=== PATIENT | male | born 1960 | race Caucasian/White ===

== ENCOUNTER → 2020-11-19 | Outpatient (CLI) | payer MEDICARE ==
[2014-10-14 17:56] VITALS: BP 135/87
[~2020-11-19] MED LIST: IOHEXOL 240 MG/ML 50ML VIAL. ONE; IOHEXOL 240 MG/ML 50ML VIAL. PO ONE; IOHEXOL 300 MG/ML 75 ML VIAL. IV ONE; OXYC5TAB88 PO; PROM12.554 RC
--- NOTE | 2020-11-19 15:13 | RAD ---
Axial CT of the abdomen and pelvis were obtained after the administration of intravenous contrast . O ral contrast was also administered. Coronal and sagittal reformats are also available. Indication: Abdominal pain and bloating. History of skin cancer.. Comparison: None. Findings: Lung bases are clear. The heart is unenlarged. Multiple, too numerous to count lesions are identified in the bilateral lobes of the liver. Findings are highly suspicious for metastatic disease or less likely multifocal HCC. Spleen, adrenals kidneys and pancreas are unremarkable in appearance. There is trace pericholecystic fluid as well as trace pe rihepatic fluid. The stomach, small and large bowel are nondistended. There is significant sigmoid diverticulosis with out diverticulitis. Additionally there is a long segment thickening of the a sending colon as well. T he appendix is visualized and is unremarkable in appearance. No free air. The abdominal aorta is nonaneurysmal. There is dense calcific atherosclerotic disease. The superior m esenteric and splenic veins are normal in appearance. Bony structures are unremarkable. IMPRESSION: 1. Multiple hypodensities throughout the liver in a bilobar distribution most suggestive of metastati c disease. Would also consider multifocal HCC this is less likely. There is trace pericholecystic flu id as well as trace perihepatic fluid. 2. Sigmoid diverticulosis no diverticulitis. There is also thickening of the a sending colon. Unknown if this is inflammatory change or possible neoplasm. Exposure: One or more of the following individualized dose reduction techniques were utilized for thi s examination: 1. Automated exposure control 2. Adjustment of the mA and/or kV according to patient size 3. Use of iterative reconstruction technique Electronically signed by: Francisco J Gilmore MD (11/19/2020 3:10 PM) [facility]
== END ==
LOC: RAD 13:04
PROVIDERS: ATTEND Internal Medicine
DX: K57.30 Diverticulosis of large intestine without perforation or abscess without bleeding (principal)
CPT/HCPCS: 74177; Q9966; Q9967

== ENCOUNTER 2020-11-22 14:14 | Emergency (ER) | payer MEDICARE ==
[~2020-11-22] VITALS: Ht 177.8 cm; Wt 82.0 kg
[2020-11-22 14:21] VITALS: BP 119/71
[2020-11-22] MEDS ORDERED: ONDANSETRON PF 4 MG/2 ML VIAL. IVP ONE (14:30)
[2020-11-22] MEDS ORDERED: IV NORMAL SALINE 500ML 500 ML IV ONE (14:30)
[2020-11-22] MEDS ORDERED: HYDROcodone/APAP 5/325MG 1 TAB TABLET PO ONE (14:45)
[2020-11-22] MEDS ORDERED: PROM12.554 RC (14:49)
--- NOTE | 2020-11-22 14:56 | PHYS DOC ---
Past History Past Medical History: High Cholesterol, Hypertension, Stroke, Other (MATI GOLDMAN APRN) Past Surgical History: Other (MATI GOLDMAN APRN) Alcohol Use: None Drug Use: None (MATI GOLDMAN APRN) General Adult EDM: Chief Complaint: ABDOMINAL PAIN HPI: HPI: Patient is a 60 year old male who presents to the emergency department for pain control and nausea medication. Patient reports that on November 19 he was referred to have a CT of his abdomen by his primary care provider Dr. Martinez and they found several lesions on his liver indicating metastatic disease. Patient is reporting nausea vomiting and diarrhea. He rates his pain 8 out of 10. He states that most of his pain is located in his right lower quadrant and radiates to his flank. Patient has been taking 4 mg of Zofran ODT and 50 mg of tramadol at home. He states that he vomited once today. Patient denies any alcohol use, fevers, urinary symptoms, blood in stools or vomit. (MATI GOLDMAN APRN) Review of Systems: Review of Systems: Constitutional: SEE HPI GI: see HPI : SEE HPI (MATI GOLDMAN APRN) Current Medications: Current Meds: Current Medications Medications (Trade) Dose Ordered Sig/Rayray Start Time Stop Time Status Last Admin Dose Admin Fentanyl Citrate (Fentanyl 2ml Vial) 50 mcg 1X ONCE 11/22/20 14:30 11/22/20 14:45 DC Ondansetron HCl (Zofran) 4 mg 1X ONCE 11/22/20 14:30 11/22/20 14:45 DC Sodium Chloride 500 ml @ 0 mls/hr 1X ONCE 11/22/20 14:30 11/22/20 14:45 DC (MATI GOLDMAN APRN) Allergies: Allergies: Allergies Coded Allergies Type Severity Reaction Last Updated Verified codeine Allergy Severe 10/14/14 Yes (MATI GOLDMAN APRN) Physical Exam: PE: Constitutional: Well developed, well nourished, no acute distress, non-toxic appearance. [] HENT: Normocephalic, atraumatic, bilateral external ears normal, oropharynx moist, no oral exudates, nose normal. [] Eyes: PERRLA, EOMI, conjunctiva normal, no discharge. [] Neck: Normal range of motion, no tenderness, supple, no stridor. [] Cardiovascular:Heart rate regular rhythm, no murmur [] Lungs & Thorax: Bilateral breath sounds clear to auscultation [] Abdomen: Bowel sounds normal, no tenderness, abdominal distention, no pulsatile masses, abdomen firm, pain with palpation of rlq, no rebound tenderness, negative rovsings sign Skin: Warm, dry, no erythema, no rash. [] Back: No tenderness, no CVA tenderness. [] Extremities: No tenderness, no cyanosis, no clubbing, ROM intact, no edema. [] Neurologic: Alert and oriented X 3, normal motor function, normal sensory function, no focal deficits noted. [] Psychologic: Affect normal, judgement normal, mood normal. [] (MATI GOLDMAN APRN) Current Patient Data: Vital Signs: Vital Signs Date Time Temp Pulse Resp B/P (MAP) Pulse Ox O2 Delivery O2 Flow Rate FiO2 11/22/20 14:21 98.3 87 16 119/71 (87) 95 Room Air (MATI GOLDMAN APRN) EKG: EKG: [] (MATI GOLDMAN APRN) Radiology/Procedures: Radiology/Procedures: [] (MATI GOLDMAN APRN) Heart Score: C/O Chest Pain: N/A Risk Factors: Risk Factors: DM, Current or recent (<one month) smoker, HTN, HLP, family history of CAD, obesity. Risk Scores: Score 0 - 3: 2.5% MACE over next 6 weeks - Discharge Home Score 4 - 6: 20.3% MACE over next 6 weeks - Admit for Clinical Observation Score 7 - 10: 72.7% MACE over next 6 weeks - Early Invasive Strategies (MATI GOLDMAN APRN) Course & Med Decision Making: Course & Med Decision Making Pertinent Labs and Imaging studies reviewed. (See chart for details) [] Patient presents to the emergency department for pain control and nausea medication. Patient reports that on November 19 he was referred to have a CT of his abdomen by his primary care provider Dr. Martinez and they found several lesions on his liver indicating metastatic disease. Patient is reporting nausea vomiting and diarrhea. He rates his pain 8 out of 10. He states that most of his pain is located in his right lower quadrant and radiates to his flank. Patient has been taking 4 mg of Zofran ODT and 50 mg of tramadol at home. He states that he vomited once today. Patient denies any alcohol use, urinary symptoms, fever, blood in stools or vomit. I discussed with patient potential work-up in the ER including blood work. I reviewed his CT imaging report. He states that he just got blood work done at Dr. Martinez's office and he does not think that he needs it again. Patient states that he would just like an IV with IV fluids, nausea and pain medication. He states that he will follow-up with Dr. Martinez tomorrow. This was ordered for patient and he was p.o. challenged in the ER. Patient is supposed to follow-up with [facility]. Patient is alert and oriented and capable of making decisions. Patient discharged home with pain medication and phenergan suppositories. he tolerates oxycodone. VSS upon discharge 95% room air HR 82. Patient states that he feels much better aft er IV medications. He was able to tolerate PO intake. He has not vomited in ER. I discussed with patient all findings as well as the need to follow-up with PCP for further evaluation and treatment or return to the ER if any new or worsening symptoms. Strict return precautions were also discussed at length. Patient voiced understanding and agreement with the plan. Patient is hem odynamically stable at the time of disposition. (MATI GOLDMAN APRN) Course & Med Decision Making I was the Attending physician on the above date of service of this patient. This patient was evaluated, examined, treated, and dispositioned from the emergency department by the mid-level practitioner. Although I was working at the time , no assistance was requested. Electronically signed, Pastor Stephens DO (PASTOR STEPHENS DO) Karli Disclaimer: Karli Disclaimer: This electronic medical record was generated, in whole or in part, using a voice recognition dictation system. (MATI GOLDMAN APRN) Departure Departure: Impression: Primary Impression: Chronic abdominal pain Additional Impression: Nausea & vomiting Qualified Codes: R11.2 - Nausea with vomiting, unspecified Disposition: HOME / SELF CARE / HOMELESS Condition: GOOD Referrals: DASHA MARTINEZ MD (PCP) Patient Instructions: Nausea and Vomiting Additional Instructions: You were seen in the ER today for vomiting and abdominal pain due to liver metastatic disease. You can take Promethazine suppositories for nausea. Continue your Tramadol as previously prescribed. You can also take oxycodone tablets for pain. These medications may cause drowsiness so do not take when you need to be alert. Follow up with Dr. Martinez tomorrow. If your pain worsens, you develop worsening of your nausea/vomiting, fatigue, lethargy, chest pain, shortness of breath, blood in stools or vomit, weakness, high fevers return to ER immediately. EMERGENCY DEPARTMENT GENERAL DISCHARGE INSTRUCTIONS Thank you for coming to [facility] (ED) today and trusting us with you care. We trust that you had a positivie experience in our Emergency Department. If you wish to speak to the department management, you may call the director at [phone]. YOUR FOLLOW UP INSTRUCTIONS ARE FOLLOWS: 1. Do you have a private Doctor? If you do not have a private doctor, please ask for a resource list of physicians or clinics that may be able to assist you with follow up care. 2. The Emergency Physician has interpreted your x-rays. The X-Ray specialist will also review them. If there is a change in the findings, you will be notified in 48 hours when at all possible. 3. A lab test or culture has been done, your results will be reviewed and you will be notified if you need a change in treatment. ADDITIONAL INSTRUCTIONS AND INFORMATION: 1. Your care today has been supervised by a physician who is specially trained in emergency care. Many problems require more than one evaluation for a complete diagnosis and treatment. We recommend that you schedule your follow up appointment as recommended to ensure complete treatment of you illness or injury. If you are unable to obtain follow up care and continue to have a problem, or if your condition worsens, we recommend that you return to the ED. 2. We are not able to safely determine your condition over the phone nor are we able to give sound medical advice over the phone. For these safety reasons, if you call for medical advice we will ask you to come to the ED for further evaluation. 3. If you have any questions regarding these discharge instructions please call the ED at [phone]. SAFETY INFORMATION: In the interest of safety, wellness, and injury prevention; we encourage you to wear your sealbelt, if you smoke; quite smoking, and we encourage family to use a protective helmet for bicycling and other sporting events that present an increased risk for head injury. IF YOUR SYMPTOMS WORSEN OR NEW SYMPTOMS DEVELOP, OR YOU HAVE CONCERNS ABOUT YOUR CONDITION; OR IF YOUR CONDITION WORSENS WHILE YOU ARE WAITING FOR YOUR FOLLOW UP APPOINTMENT; EITHER CONTACT YOUR PRIMARY CARE DOCTOR, THE PHYSICIAN WHOSE NAME AND NUMBER YOU WERE GIVEN, OR RETURN TO THE ED IMMEDIATELY. Scripts Oxycodone HCl (Roxicodone) 5 Mg Tablet 5 MG PO Q4-6HRS PRN for PAIN for 2 Days, #12 TAB 0 Refills Prov: MATI GOLDMAN APRN 11/22/20 Promethazine Hcl (PROMETHAZINE HCL) 12.5 Mg Supp.rect 1 SUPP RC Q4-6HRS for nausea for 4 Days, #24 SUPP 0 Refills Prov: MATI GOLDMAN APRN 11/22/20 MATI GOLDMAN APRN Nov 22, 2020 14:56 PASTOR STEPHENS DO Nov 25, 2020 06:10
[2020-11-22] MEDS ORDERED: oxyCODONE IR 5 MG TABLET PO PRN (15:15)
[2020-11-22] MEDS ORDERED: oxyCODONE IR 5 MG TABLET ONE (15:16)
[2020-11-22] MEDS ORDERED: OXYC5TAB88 PO (15:38)
== END 2020-11-22 15:35 | disposition home or self-care (01) ==
LOC: ER 14:14
DX: R10.31 Right lower quadrant pain (principal); R11.2 Nausea with vomiting, unspecified; E78.5 Hyperlipidemia, unspecified; I10 Essential (primary) hypertension; Z88.5 Allergy status to narcotic agent
CPT/HCPCS: 96361; 96374; 96375; 99284; J2405; J3010; J7040

== ENCOUNTER 2020-11-25 15:38 | Emergency (ER) | payer MEDICARE ==
[~2020-11-25] VITALS: Ht 175.3 cm; Wt 82.5 kg
[~2020-11-25 15:38] MED LIST changes: -IOHEXOL 240 MG/ML 50ML VIAL. ONE; -IOHEXOL 240 MG/ML 50ML VIAL. PO ONE; -IOHEXOL 300 MG/ML 75 ML VIAL. IV ONE
--- NOTE | 2020-11-25 16:54 | PHYS DOC ---
Past History Past Medical History: High Cholesterol, Hypertension, Stroke, Other Additional Past Medical Histor: liver lesions Past Surgical History: Other Additional Past Surgical Histo: carp tunnel, heart stents Alcohol Use: None Drug Use: None Adult General Chief Complaint Chief Complaint: ABDOMINAL PAIN HPI HPI Patient is a 60-year-old male presenting for generalized pain. He comes by way of PCP who recommended he come in for evaluation. He was recently seen and evaluated at our facility after having CT abdomen pelvis performed in outpatient setting with subsequent metastatic findings. He has since established care with [facility] oncology and has outpatient scheduled appointment with them tomorrow for consultation. He went today to outlying outpatient radiology for CT scan of his chest where they found free air within chest and/or abdominal cavity, it is unclear which 1. He was subsequently contacted by his primary care physician and cannot remember where they said the free air was but advised him to present to local emergency department immediately for further evaluation. Patient reports ongoing chronic pain that is unchanged, no new symptoms since last seen in our ER setting Review of Systems Review of Systems Fourteen body systems of review of systems have been reviewed. See HPI for pertinent positives and negative responses, other dias all other systems are negative, non-pertinent or non-contributory Allergies Allergies Allergies Coded Allergies Type Severity Reaction Last Updated Verified codeine Allergy Severe 10/14/14 Yes Physical Exam Physical Exam Constitutional: Well developed, well nourished, no acute distress, non-toxic appearance. HENT: Normocephalic, atraumatic, bilateral external ears normal, oropharynx moist, no oral exudates, nose normal. Eyes: PERRLA, EOMI, conjunctiva normal, no discharge. Neck: Normal range of motion, no tenderness, supple, no stridor. Cardiovascular: Heart rate regular, sinus rhythm, no murmurs rubs or gallops Lungs & Thorax: Bilateral breath sounds clear to auscultation Abdomen: Bowel sounds normal, soft, no tenderness, no masses, no pulsatile masses. Nonsurgical abdomen, no peritoneal signs Skin: Warm, dry, no erythema, no rash. Jaundiced Back: No tenderness, no CVA tenderness. Extremities: No tenderness, no cyanosis, no clubbing, ROM intact, no edema. Neurologic: Alert and oriented X 3, grossly normal motor & sensory function, no focal deficits noted. Psychologic: Affect normal, judgement normal, mood normal. Current Patient Data Vital Signs Vital Signs Date Time Temp Pulse Resp B/P (MAP) Pulse Ox O2 Delivery O2 Flow Rate FiO2 11/25/20 16:40 98.6 65 20 150/78 (102) 95 Room Air Lab Results Laboratory Tests Test 11/25/20 16:53 11/25/20 16:56 White Blood Count 7.4 x10^3/uL Red Blood Count 4.08 x10^6/uL Hemoglobin 13.2 g/dL Hematocrit 38.9 % Mean Corpuscular Volume 96 fL Mean Corpuscular Hemoglobin 32 pg Mean Corpuscular Hemoglobin Concent 34 g/dL Red Cell Distribution Width 15.7 % Platelet Count 107 x10^3/uL Neutrophils (%) (Auto) 73 % Lymphocytes (%) (Auto) 14 % Monocytes (%) (Auto) 12 % Eosinophils (%) (Auto) 1 % Basophils (%) (Auto) 1 % Neutrophils # (Auto) 5.4 x10^3uL Lymphocytes # (Auto) 1.0 x10^3/uL Monocytes # (Auto) 0.9 x10^3/uL Eosinophils # (Auto) 0.0 x10^3/uL Basophils # (Auto) 0.0 x10^3/uL Prothrombin Time 12.4 SEC Prothromb Time International Ratio 1.2 Activated Partial Thromboplast Time 28 SEC Sodium Level 138 mmol/L Potassium Level 3.7 mmol/L Chloride Level 101 mmol/L Carbon Dioxide Level 25 mmol/L Anion Gap 12 Blood Urea Nitrogen 21 mg/dL Creatinine 1.2 mg/dL Estimated GFR (Cockcroft-Gault) 62.2 BUN/Creatinine Ratio 18 Glucose Level 80 mg/dL Lactic Acid Level 2.6 mmol/L Calcium Level 8.9 mg/dL Total Bilirubin 3.7 mg/dL Aspartate Amino Transf (AST/SGOT) 411 U/L Alanine Aminotransferase (ALT/SGPT) 152 U/L Alkaline Phosphatase 495 U/L Troponin I Quantitative 0.033 ng/mL Total Protein 6.2 g/dL Albumin 2.8 g/dL Albumin/Globulin Ratio 0.8 Coronavirus (COVID-19)(PCR) Not detected SARS-CoV-2 Antigen (Rapid) Negative EKG EKG EKG ordered and interpreted by myself at 1704 hrs. as sinus rhythm at 82 bpm, unremarkable intervals, no axis deviation, T wave inversion noted in lead aVL, no STEMI Radiology/Procedures Radiology/Procedures [] Heart Score C/O Chest Pain: No Risk Factors: Risk Factors: DM, Current or recent (<one month) smoker, HTN, HLP, family history of CAD, obesity. Risk Scores: Risk Factors: DM, Current or recent (<one month) smoker, HTN, HLP, family history of CAD, obesity. Course & Med Decision Making Course & Med Decision Making ABCs unremarkable HPI physical exam and comprehensive ER work-up nonconcerning for any emergent or surgical issues No free air identified on CT imaging performed in ER today Patient has metastasis with primary origin unknown at this time. As mentioned, no emergent or surgical issues. I disclosed need for hospital transfer for inpatient oncology services for further evaluation but patient has previously scheduled outpatient follow-up with oncology tomorrow at [facility] Sister at bedside. Patient case and plan of care discussed. All in agreement that patient's pain is well controlled with previously prescribed medications. Close outpatient follow-up with oncology tomorrow with strict return precautions given should certain signs or symptoms arise prior to then All questions and concerns addressed prior to ER departure Dragon Disclaimer Dragon Disclaimer This electronic medical record was generated, in whole or in part, using a voice recognition dictation system. Departure Departure: Impression: Primary Impression: Lung mass Additional Impressions: Abdominal mass Metastasis of unknown primary Disposition: 01 HOME / SELF CARE / HOMELESS Condition: STABLE Referrals: DASHA MARTINEZ MD (PCP) Additional Instructions: As discussed prior to ER departure, you have concerning lung mass in addition to numerous abdominal masses that are concerning for cancer. The origin of which are unknown at this time which is why you have an outpatient follow-up with oncology tomorrow to review these findings and need for continued work-up. Your vital signs, physical exam and comprehensive ER work-up today in the ER was nonconcerning for any emergent or surgical issues. As such, I disclosed hospitalization for further inpatient medical diagnostic work-up and intervention but given that you have close outpatient follow-up with oncology tomorrow and pain has been controlled with previously prescribed narcotics, deci analilia was made to discharge home. If any concerning signs or symptoms present prior to outpatient follow-up please do not hesitate to come back for repeat evaluation. It was a pleasure to take care of you and I wish you the best going forward Problem Qualifiers PASTOR STEPHENS DO Nov 25, 2020 16:54
--- NOTE | 2020-11-25 17:07 | EKG ---
[address] [address] Test Date: 2020-11-25 Test Time: 16:56:51 Pat Name: HEVER MAYS Department: Room: Gender: M Retirement Plan Specialist: [place] : 1960 Requested By: PASTOR STEPHENS Order Number: [id number] Reading MD: Brendan Page MD Measurements Intervals [place] Rate: 82 P: 48 MN: 156 QRS: 26 QRSD: 98 T: 85 QT: 376 QTc: 442 Interpretive Statements SINUS RHYTHM QRS(T) CONTOUR ABNORMALITY CONSISTENT WITH INFERIOR INFARCT PROBABLY OLD T ABNORMALITY IN HIGH LATERAL LEADS ABNORMAL ECG Electronically Signed On 11-25-2020 17:24:32 CDT by Brendan Paeg MD
[2020-11-25 17:11] LABS: BASO % 1 % (0-3); EOS % 1 % (0-3); HEMATOCRIT 38.9 % (39.0-53.0); HEMOGLOBIN 13.2 g/dL (13.0-17.5); LYMPH % 14 % (24-48); MEAN CORPUSCULAR HEMOGLOBIN 32 pg (25-35); MEAN CORPUSCULAR HGB CONC 34 g/dL (31-37); MEAN CORPUSCULAR VOLUME 96 fL (79-100); MONO # 0.9 x10^3/uL (0.0-1.1); MONO % 12 % (0-9); NEUT # 5.4 x10^3uL (1.8-7.7); NEUT % 73 % (31-73); PLATELET COUNT 107 x10^3/uL (140-400); RED BLOOD COUNT 4.08 x10^6/uL (4.30-5.70); RED CELL DISTRIBUTION WIDTH 15.7 % (11.5-14.5); WHITE BLOOD COUNT 7.4 x10^3/uL (4.0-11.0)
[2020-11-25 17:20] LABS: CALCIUM 8.9 mg/dL (8.5-10.1); CREATININE 1.2 mg/dL (0.7-1.3); GFR 62.2; POTASSIUM 3.7 mmol/L (3.5-5.1)
[2020-11-25 17:25] LABS: ALBUMIN 2.8 g/dL (3.4-5.0); ALBUMIN/GLOBULIN RATIO 0.8 (1.0-1.7); TOTAL BILIRUBIN 3.7 mg/dL (0.2-1.0); TOTAL PROTEIN 6.2 g/dL (6.4-8.2)
--- NOTE | 2020-11-25 17:49 | RAD ---
EXAM: CT Chest, Abdomen and Pelvis without IV contrast CLINICAL HISTORY: METS DISEASE WITH RECENT FREE AIR COMPARISON: 11/19/2020 TECHNIQUE: Helical CT of the chest, abdomen and pelvis was performed without intravenous contrast. Ax ial, coronal and sagittal reformatted images were generated. ---PQRS compliance statement - One or more of the following individualized dose reduction techniques were utilized for this study: 1. Automated exposure control 2. Adjustment of the mA and/or kV according to patient size 3. Use of iterative reconstruction technique--- FINDINGS: Lack of intravenous contrast limits evaluation of solid organs, vasculature, and lymph nodes. Chest: Spiculated right upper lobe mass measures 2.1 x 2.1 cm. Associated satellite nodule in the right uppe r lobe measures 1.6 x 0.9 cm. Right hilar lymphadenopathy, accurate measurement limited given noncont rast examination. Precarinal lymph node measures approximately 5 x 3.1 cm. Additional mediastinal lym phadenopathy is seen including subcarinal, paratracheal lymphadenopathy. Heart is not enlarged. Coron desmond calcifications are seen. Trace pericardial fluid may be physiologic. Distal esophageal thickening may be seen with esophagitis. No axillary lymphadenopathy. Trace right pleural effusion. No pneumoth orax. Abdomen and Pelvis: Numerous low-density liver lesions are seen, consistent with metastatic disease. High density materia l within the gallbladder likely vicarious excretion of contrast. Gallbladder is otherwise unremarkabl e. Spleen, adrenal glands and pancreas are unremarkable. No definite renal lesion. No hydronephrosis. No hydroureter. Contrast is seen within the renal collec ting systems without hydronephrosis or obvious mass. Colonic diverticulosis without CT evidence for acute diverticulitis. Focal sigmoid colonic thickening . Appendix is normal. No small or large bowel dilatation. Contrast is seen within a patent urachal re mnant to the periumbilical region. Several small omental nodules are seen, for example anterior left omentum nodule measures 2 x 1.4 cm (image 162). Bones: No aggressive osseous lesion is seen. IMPRESSION: 1. Spiculated right upper lobe lung mass suspicious for primary malignancy or metastasis. Small sate llite nodule in the right upper lobe/apex. 2. Associated mediastinal and and right hilar lymphadenopathy as well as hypodense hepatic lesions, suspicious for metastatic disease. 3. Small omental nodules are also seen which may represent metastatic disease. 4. Sigmoid diverticulosis. Underlying sigmoid thickening may be related to underdistention although underlying sigmoid mass is not excluded and can be further assessed by colonoscopy. 5. Incidentally noted patent urachal remnant extending into the periumbilical region. No definite tr act to the skin. Electronically signed by: Meño Felix MD (11/25/2020 5:46 PM) [facility]
[2020-11-25 18:00] VITALS: BP 137/68
== END 2020-11-25 18:47 | disposition home or self-care (01) ==
LOC: ER 15:38
DX: R91.8 Other nonspecific abnormal finding of lung field (principal); R19.00 Intra-abdominal and pelvic swelling, mass and lump, unspecified site; E78.00 Pure hypercholesterolemia, unspecified; I10 Essential (primary) hypertension; Z20.822 Contact with and (suspected) exposure to COVID-19; Z86.73 Personal history of transient ischemic attack (TIA), and cerebral infarction without residual deficits; Z88.5 Allergy status to narcotic agent
CPT/HCPCS: 36415; 71250; 74176; 80053; 83605; 84484; 85025; 85610; 85730; 87426; 93005; 99285; C9803; U0003